=== PATIENT | male | born 1980 | race African-American/Black ===

== ENCOUNTER → 2019-01-03 13:21 | Outpatient (CLI) | payer OTHER ==
[2011-02-18 13:24] VITALS: BMI 27.1
[~2019-01-03 13:21] MED LIST: LISINOPRIL20 MG PO; XALATAN 0.0052.5 ML EACH EYE
== END | disposition home or self-care (01) ==
LOC: D.US 13:21
PROVIDERS: ATTEND Family Medicine
DX: N45.1 Epididymitis (principal)

== ENCOUNTER 2019-01-31 08:23 | Day surgery (SDC) | payer OTHER ==
[2011-02-18 13:24] VITALS: Ht 182.9 cm; Wt 94.3 kg
[2019-01-28 11:44] LABS: HEMATOCRIT 41.7 % (42.0-54.0); HEMOGLOBIN 14.1 g/dL (13.5-17.5); MCH 30.1 pg (26.0-34.0); MCHC 33.8 g/dL (31.0-37.0); MCV 89.1 fL (80.0-100.0); MEAN PLATELET VOLUME 8.7 fL (7.4-10.4); RBC 4.68 10x6/uL (4.20-6.10); RDW 12.8 % (11.5-14.5); WBC 6.5 10x3/uL (4.8-10.8)
[~2019-01-31] VITALS: Ht 182.9 cm; Wt 94.3 kg
[2019-01-31 08:21] VITALS: BP 141/91; BMI 28.2
--- NOTE | 2019-01-31 10:42 | NUR ---
1037-DISCHARGE CRITERIA MET. ABLE TO URINATE WITHOUT COMPLICATIONS. VSS. REMOVED IV WITH CATH INTACT,DISPOSED INTO SHARPS,COVERED SITE WITH BANDAID. REVIEWED POST OPERATIVE INSTRUCTIONS.VERBALIZED UNDERSTANDING. ESCORTED OUT VIA W/C WITH AWAITING TO DRIVE HOME.STABLE
--- NOTE | 2019-01-31 13:05 | OP ---
PATIENT NAME: DIMITRIOS CORDERO MEDICAL RECORD: [id number] :76 LOCATION:D.OPS ADMISSION DATE: SURGEON: JOHN BOLES MD DATE OF OPERATION: 01/31/2019 SURGEON: John Boles MD ANESTHESIA: TIVA by Martin Baltazar CRNA DIAGNOSIS: Interstitial cystitis. PROCEDURES: Cystoscopy, hydrodistention of the bladder, intravesical Rimso instillation. FINDINGS: Nonobstructive prostate. He has a tight bladder neck. Trabeculated bladder with very inflamed bladder mucosa. Single ureteral orifices bilaterally. No bladder tumors. BLOOD LOSS: None. CLINICAL HISTORY: This is a 39-year-old male, who has complaints of bilateral testicular pain, not responsive to antibiotics and anti-inflammatories. Ultrasound of the scrotum shows normal bilateral testicular flow with no signs of infection or inflammation. He also has urinary frequency in the daytime with a good urinary flow. He has some associated pelvic and abdominal pains radiating into the peritoneum, which is suggestive of interstitial cystitis. HE IS ALLERGIC TO MORPHINE. 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 We are performing cystoscopy to check for bladder inflammation and if inflammation is seen, then we will treat as for interstitial cystitis with hydrodistention and intravesical Rimso. DESCRIPTION OF PROCEDURE: The patient was given IV sedation. He was placed into lithotomy position and prepped and draped. A 17-Irish cystoscope with 30-degree lens was used for visualization. Findings are as outlined above. I distended the bladder with at least 600 mL of fluid for 1 minute. The bladder was then emptied through the scope sheath and the scope was removed. A red rubber catheter was inserted into the bladder and through the lumen of the catheter, 50 mL of intravesical Rimso solution was instilled into the bladder. The catheter was then removed, leaving the solution in the bladder. The patient will hold the solution in for 15 minutes and then void it out. For the bladder neck being tied, I have started him on a prescription of tamsulosin. I will see the patient in followup in 2 weeks' time to check on his symptoms. TRANSINT:[id number] Voice Confirmation ID: [id number] DOCUMENT ID: [id number] JOHN BOLES MD at 1305 CC: [id number] DICTATION DATE: 01/31/19929 AIRLINE RADIO OPERATOR: 01/31/19 1208 [facility] [place] 01/31/19 [facility] [address] [id number]
== END 2019-01-31 10:37 | disposition home or self-care (01) ==
LOC: D.OPS 08:23 → D.PAN 11:00 → D.OPS 11:00
PROVIDERS: Anesthesiology; ATTEND Urology
DX: N30.10 Interstitial cystitis (chronic) without hematuria (principal)

== ENCOUNTER → 2019-02-07 09:38 | Outpatient (CLI) | payer OTHER ==
[2019-01-31 08:21] VITALS: BMI 28.2
== END | disposition home or self-care (01) ==
LOC: D.CT 09:38
PROVIDERS: ATTEND Urology
DX: N20.0 Calculus of kidney (principal)